=== PATIENT | male | born 1960 | race Caucasian/White ===

== ENCOUNTER 2019-02-24 20:38 | Emergency (ER) | payer BC ==
[2019-02-24] MEDS ORDERED: predniSONE 20 MG TAB PO ONE (21:02)
[2019-02-24] MEDS ORDERED: ACETAMINOPHEN-CAFF-BUTALBITAL 1 EA TAB PO ONE (21:02)
--- NOTE | 2019-02-24 21:31 | ED.PDOC ---
History of Present Illness - General Chief Complaint: Upper Extremity Injury Stated Complaint: C/O right wrist pain and swelling Time Seen by Provider: 02/24/19 20:43 Source: patient Exam Limitations: no limitations - History of Present Illness Initial Comments: the patient is a 59-year-old male presenting to emergency room secondary to swelling of his right wrist and pain with movement of his right wrist. There is some mild radiation upwards when he does move it. 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 No real trauma. Sensation is preserved. Swelling is minimal. No overt evidence of any infection. Pain is worse with palpation and movement. Passive range of motion is still preserved. Strength is still preserved. He is neurovascularly intact at this time. Timing/Duration: unsure Severity: moderate Improving Factors: immobilization Worsening Factors: movement Associated Symptoms: denies symptoms Allergies/Adverse Reactions: Allergies Penicillins Allergy (Verified 02/24/19 21:17) Rash Home Medications: Ambulatory Orders Tvlghvtkbcdao-Ddft-Aqgpyxarng [Fioricet] 1 ea PO Q8H PRN #21 tab 02/24/19 Lisinopril & Hydrochlorothiazi [Lisinopril/Hctz 20-25 mg] 1 tab PO DAILY 02/24/19 predniSONE [Prednisone] 20 mg PO DAILY #3 tab 02/24/19 Review of Systems - Review of Systems Constitutional: States: no symptoms reported EENTM: States: no symptoms reported Respiratory: States: no symptoms reported Cardiology: States: no symptoms reported Gastrointestinal/Abdominal: States: no symptoms reported Genitourinary: States: no symptoms reported Musculoskeletal: States: see HPI Skin: States: no symptoms reported Neurological: States: see HPI Endocrine: States: no symptoms reported All other Systems: No Change from Baseline Physical Exam - Physical Exam General Appearance: Alert, Comfortable, No apparent distress Eye Exam: bilateral normal Ears, Nose, Throat: hearing grossly normal Neck: full range of motion Respiratory: no respiratory distress, no accessory muscle use Cardiovascular/Chest: normal peripheral pulses, no edema Peripheral Pulses: radial,right: 2+, radial,left: 2+ Rectal Exam: deferred Back Exam: normal inspection Extremity: normal range of motion, no pedal edema, normal capillary refill, inflammation, swelling, other - see history of present illness 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 This is likely an overuse injury. He is given a dose of prednisone and Fioricet here. He will be written for both for a couple of days. He does need to try to do stretching and range of motion exercises with the hand to reduce swelling. Swelling will only worsen if he does not. Alnf-itd-aviujdq ibuprofen can be used as well if needed. X-ray shows no evidence of any significant fracture or dislocation. ER warnings were given for any significant worsening. It is possible that he may be having a mild carpal tunnel flare due to the swelling, but this should resolve with decreased swelling. Departure - Departure Clinical Impression: Tenosynovitis, wrist ICD-10 Supporting Text: right wrist, initial evaluation. Disposition: Discharge to Home or Self Care Condition: Fair Departure Forms: ED Discharge - Pt. Copy, Patient Portal Self Enrollment Diet: regular diet Activity: increase activity as tolerated Prescriptions: Bbqqwzotzyzys-Ckqy-Kwdoarlhvn [Fioricet] 1 ea PO Q8H PRN #21 tab PRN Reason: Pain predniSONE [Prednisone] 20 mg PO DAILY #3 tab Home Medications: Ambulatory Orders Wvkadqtevgqiy-Bkbu-Llvbyhhhqt [Fioricet] 1 ea PO Q8H PRN #21 tab 02/24/19 Lisinopril & Hydrochlorothiazi [Lisinopril/Hctz 20-25 mg] 1 tab PO DAILY 02/24/19 predniSONE [Prednisone] 20 mg PO DAILY #3 tab 02/24/19 Additional Instructions: the patient is a 59-year-old male presenting with what appears to es sentially be tenosynovitis of the right wrist area. This is likely an overuse injury. He is given a dose of prednisone and Fioricet here. He will be written for both for a couple of days. He does need to try to do stretching and range of motion exercises with the hand to reduce swelling. Swelling will only worsen if he does not. Jilu-hmt-unhcumt ibuprofen can be used as well if needed. X-ray shows no evidence of any significant fracture or dislocation. ER warnings were given for any significant worsening. It is possible that he may be having a mild carpal tunnel flare due to the swelling, but this should resolve with decreased swelling.
[2019-02-24 21:34] VITALS: TEMP 98; O2SAT 95
--- NOTE | 2019-02-24 21:37 | RAD ---
EXAM: Wrist,Right 3 Views CLINICAL INDICATION: Right wrist pain COMPARISON: There is no previous study for comparison. FINDINGS: Three views of the right wrist reveal no fracture. The carpal bones and carpal interosseous spaces are intact. There are no radiopaque foreign bodies. The osseous structures are intact and unremarkable. IMPRESSION: Negative right wrist radiographs. Electronically signed by: Angelo Fields MD 02/24/2019 9:33 PM CDT
[2019-02-24 21:54] VITALS: BP 140/98
== END 2019-02-24 22:05 | disposition home or self-care (01) ==
LOC: ER 20:38
DX: M65.88 Other synovitis and tenosynovitis, other site (principal); Z88.0 Allergy status to penicillin
CPT/HCPCS: 73110; J7512

== ENCOUNTER 2019-09-28 20:49 | Emergency (ER) | payer BC ==
[2019-09-28] MEDS ORDERED: SODIUM CHLORIDE 0.9% (FLUSH) 10 ML SYG IV PRN (20:53)
[2019-09-28] MEDS ORDERED: cloNIDine HCL 0.1 MG TAB PO ONE (21:08)
--- NOTE | 2019-09-28 21:12 | ED.PDOC ---
History of Present Illness - General Chief Complaint: Blood Pressure Problem Time Seen by Provider: 09/28/19 20:52 Source: patient - History of Present Illness Initial Comments: 59 yo male with PMH of HTN who presents with cc of elevated BP. Reports generally not feeling well for past 2 days. Today vague sx's worsened and also develop right retroorbital MONAHAN approx 1 hr ago which lasted for 15 minutes. 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 States MONAHAN was 7/10 severity, constant, +right eye watering, resolved spontaneously and has not recurred (states has these 3-4 times per year for past 1 year now). Was taking Lisinopril-HCTZ for HTN but this was stopped and pt switched to Bystolic (unsure of dosage) 2 months ago. No known hx of CAD/AK. Reported some nausea and slight blurred vision right eye earlier with MONAHAN but now resolved. Denies fevers, chills, cough, dyspnea, abd pain, urinary sx's, weakness, numbness. Allergies/Adverse Reactions: Allergies Penicillins Allergy (Verified 02/24/19 21:17) Rash Home Medications: Ambulatory Orders Ujjqiiqhwesdn-Bsmv-Quuxtmcycv [Fioricet] 1 ea PO Q8H PRN #21 tab 02/24/19 Lisinopril & Hydrochlorothiazi [Lisinopril/Hctz 20-25 mg] 1 tab PO DAILY 02/24/19 predniSONE [Prednisone] 20 mg PO DAILY #3 tab 02/24/19 Review of Systems - Review of Systems Review of Systems: 09/28/19 21:12 as per HPI All other Systems: Reviewed and Negative Past Medical History (General) - Patient Medical History Hx Seizures: No Hx Stroke: No Hx Dementia: No Hx Asthma: No Hx of COPD: No Hx Cardiac Disorders: No Hx Congestive Heart Failure: No Hx Pacemaker: No Hx Hypertension: Yes Hx Thyroid Disease: No Hx Diabetes: No Hx Gastroesophageal Reflux: No Hx Renal Disease: No Hx Cancer: No Hx of HIV: No Hx Hepatitis C: No Hx MRSA: No - Vaccination History Hx Tetanus, Diphtheria Vaccination: No Hx Influenza Vaccination: No - Social History Hx Alcohol Use: No Family Medical History - Family History Father Living Status: Hx Family Congestive Heart Failure: Yes Hx Family Cancer: Yes - Prostate Hx Family;Other: COPD Mother Living Status: Hx Family Diabetes: Yes Hx Family Cancer: Yes - Breast Physical Exam - Physical Exam General Appearance: Alert, No apparent distress Eyes, Ears, Nose, Throat Exam: PERRL/EOMI, normal ENT inspection, pharynx normal Neck: non-tender, full range of motion, supple, normal inspection Respiratory: chest non-tender, lungs clear, normal breath sounds, no respiratory distress Cardiovascular/Chest: normal peripheral pulses, regular rate, rhythm, no edema, no gallop, no JVD, no murmur Gastrointestinal/Abdominal: non tender, soft, no organomegaly Extremity: normal range of motion, non-tender, normal inspection, no pedal edema, no calf tenderness 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 Pt reports feeling much better. Labs reveal trop <0.02, Cr 1.6, otherwise pretty unremarkable. CXR no acute processes per my read. EKG unremarkable. -suspect poorly controlled essential HTN along with cluster vs tension MONAHAN -will dc home in good condition, he has apptmt in 3 days with his PCP - advised to further discuss HTN & BP meds and CKD and headaches. Pt states CKD is known and likely the reason his Lisinopril & HCTZ were dc'd. David Robles MD Billing #[id number] Departure - Departure Clinical Impression: Essential hypertension, CKD (chronic kidney disease) stage 3, GFR 30-59 ml/min Time of Disposition: 22:27 Disposition: Discharge to Home or Self Care Condition: Good Departure Forms: ED Discharge - Pt. Copy, Patient Portal Self Enrollment Instructions: DI for High Blood Pressure, Chronic Kidney Disease (DC) Diet: low salt diet Activity: increase activity as tolerated Home Medications: Ambulatory Orders Plpbewnssonjz-Hntf-Pmoosmuljr [Fioricet] 1 ea PO Q8H PRN #21 tab 02/24/19 Lisinopril & Hydrochlorothiazi [Lisinopril/Hctz 20-25 mg] 1 tab PO DAILY 02/24/19 predniSONE [Prednisone] 20 mg PO DAILY #3 tab 02/24/19
--- NOTE | 2019-09-28 21:40 | RAD ---
EXAM DESCRIPTION: Chest,1 View CLINICAL HISTORY: elevated blood pressure COMPARISON: None. FINDINGS: Cardiac silhouette is within normal limits. There is no focal parenchymal or pleural disease. Visualized osseous structures are within normal limits. IMPRESSION: No evidence of acute cardiopulmonary disease. Electronically signed by: Mahesh Harvey 09/28/2019 9:39 PM CDT
[2019-09-28 22:33] VITALS: BP 152/89; TEMP 98.2; O2SAT 98
== END 2019-09-28 22:40 | disposition home or self-care (01) ==
LOC: ER 20:49
DX: I12.9 Hypertensive chronic kidney disease with stage 1 through stage 4 chronic kidney disease, or unspecified chronic kidney disease (principal); N18.3 Chronic kidney disease, stage 3 (moderate); Z79.899 Other long term (current) drug therapy; Z88.0 Allergy status to penicillin